=== PATIENT | male | born 1960 | race Caucasian/White ===

== ENCOUNTER 2025-03-28 06:17 | Day surgery (SDC) | payer OTHER, SELFPAY ==
[2025-03-28 07:20] LABS: Glucose - Point of Care 124 mg/dl (70-99)
== END 2025-03-28 08:44 | disposition home or self-care (01) ==
LOC: GI 06:17
PROVIDERS: ATTENDING PHYSICIAN Internal Medicine Gastroenterology
DX: Z12.11 Encounter for screening for malignant neoplasm of colon (principal); K64.8 Other hemorrhoids; Z86.0100 Personal history of colon polyps, unspecified
CPT/HCPCS: G0105; 82962